=== PATIENT | male | born 1980 ===

== ENCOUNTER 2019-04-22 19:41 | Emergency (ER) | payer BC ==
[2019-04-22 20:10] VITALS: RESP 18
[2019-04-22] MEDS ORDERED: Sodium Chloride 0.9% 1,000 ML IV STA (20:28)
--- NOTE | 2019-04-22 20:53 | ED PDOC ---
HPI: Abdomen Time Seen by Provider: 04/22/19 20:15 Chief Complaint (Nursing): Abdominal Pain Chief Complaint (Provider): Abdominal Pain, Vomiting, Diarrhea History Per: Patient History/Exam Limitations: no limitations Onset/Duration Of Symptoms: Days (x1) Current Symptoms Are (Timing): Still Present Additional Complaint(s): 39 year old male presents to the ED for evaluation of a couple episodes of non- bilious, non-bloody vomiting and several episodes of watery diarrhea beginning yesterday associated with subjective fevers and intermittent episodes of cramping abdominal pain. Patient states he saw his PMD yesterday who did not prescribe him anything, so patient has just been taking Tylenol for pain. Additionally, he is complaining of right sided lower back pain, but believes this is attributed to lifting heavy at his job, and not related to his other symptoms. Otherwise, denies blood in stool, recent travel, and antibiotic use. Past Medical History Reviewed: Historical Data, Nursing Documentation, Vital Signs Vital Signs: Last Vital Signs Temp 99.1 F 04/22/19 20:09 Pulse 105 H 04/22/19 20:09 Resp 18 04/22/19 20:09 BP 124/78 04/22/19 20:09 Pulse Ox 97 04/22/19 20:09 Primary Care Provider: FAMILY PROVIDER,NO - Medical History PMH: No Chronic Diseases - Surgical History Surgical History: No Surg Hx - Family History Family History: States: Unknown Family Hx - Social History Current smoker - smoking cessation education provided: Yes (light) Alcohol: Social Drugs: Denies - Home Medications Home Medications: Ambulatory Orders Medication Instructions Recorded Ciprofloxacin HCl [Cipro] 500 mg PO BID #14 tablet 04/23/19 Metronidazole [Flagyl] 500 mg PO BID #14 tablet 04/23/19 - Allergies Allergies/Adverse Reactions: Allergies Allergy/AdvReac Type Severity Reaction Status Date / Time No Known Allergies Allergy Verified 04/22/19 20:07 Review of Systems ROS Statement: Except As Marked, All Systems Reviewed And Found Negative Constitutional: Positive for: Fever (subjective) Gastrointestinal: Positive for: Nausea, Vomiting (couple episodes non-bloody non-bilious), Abdominal Pain (cramping), Diarrhea (several episodes watery). Negative for: Melena, Hematochezia Musculoskeletal: Positive for: Back Pain (right sided lower back pain) Physical Exam - Reviewed Nursing Documentation Reviewed: Yes Vital Signs Reviewed: Yes - Physical Exam Appears: Positive for: No Acute Distress Head Exam: Positive for: ATRAUMATIC, NORMOCEPHALIC Skin: Positive for: Normal Color, Warm, DRY Eye Exam: Positive for: EOMI, Normal appearance, PERRL ENT: Positive for: Normal ENT Inspection Neck: Positive for: Normal, Painless ROM, Supple Cardiovascular/Chest: Positive for: Regular Rate, Rhythm Respiratory: Positive for: Normal Breath Sounds. Negative for: Respiratory Distress Gastrointestinal/Abdominal: Positive for: Soft, Tenderness (mild epigastric tenderness) Back: Positive for: Normal Inspection Neurological/Psych: Positive for: Awake, Alert, Oriented (x3) - Laboratory Results Result Diagrams: 04/22/19 21:49 04/22/19 21:49 - ECG O2 Sat by Pulse Oximetry: 97 (RA) Pulse Ox Interpretation: Normal - Progress Re-evaluation Time: 02:10 Condition: Re-examined, Improved Medical Decision Making Medical Decision Making: Time: 2023 Initial Impression: abdominal pain, vomiting, diarrhea DDx includes but is not limited to: acute gastroenteritis, diverticulitis, colitis, viral v bacterial infectious diarrhea Initial Plan: --CT abd/pelvis IV contrast only --CMP --Lipase chem --U-dip --CBC with differential --Bentyl 10mg PO --Normal saline IV --Zofran 4mg IV Scribe Attestation: Documented by Paulina Acevedo, acting as a scribe for Jad Lewis MD. Provider Scribe Attestation: All medical record entries made by the Scribe were at my direction and personally dictated by me. I have reviewed the chart and agree that the record accurately reflects my personal performance of the history, physical exam, medical decision making, and the department course for this patient. I have also personally directed, reviewed, and agree with the discharge instructions and disposition. Disposition - Clinical Impression Clinical Impression: Enterocolitis - Patient ED Disposition Is Patient to be Admitted: No Doctor Will See Patient In The: Office Counseled Patient/Family Regarding: Studies Performed, Diagnosis, Need For Followup - Disposition Referrals: [facility] [Outside] Disposition: Routine/Home Disposition Time: 02:11 Condition: GOOD Additional Instructions: LUZ TILLEY, thank you for letting us take care of you today. Your provider was Jad Lewis MD and you were treated for VOMITING, DIARRHEA, FEVER. The emergency medical care you received today was directed at your acute symptoms. If you were prescribed any medication, please fill it and take as directed. It may take several days for your symptoms to resolve. Return to the Emergency Department if your symptoms worsen, do not improve, or if you have any other problems. Please contact your doctor or call one of the physicians/clinics you have been referred to that are listed on the Patient Visit Information form that is included in your discharge packet. Bring any paperwork you were given at d ischarge with you along with any medications you are taking to your follow up visit. Our treatment cannot replace ongoing medical care by a primary care provider outside of the emergency department. Thank you for allowing the [facility] team to be part of your care today. If you had an X-Ray or CT scan: A Radiologist will review the ED reading if any change in treatment is needed we will contact you. If you had a blood, urine, or wound culture: It will take several days for the results, if any change in treatment is needed we will contact you. Prescriptions: Ciprofloxacin HCl [Cipro] 500 mg PO BID #14 tablet Metronidazole [Flagyl] 500 mg PO BID #14 tablet Instructions: Colitis (DC) Forms: [address] ([employer])
[2019-04-22 21:54] LABS: BASO % 0.3 % (0.0-2.0); EOS % 0.3 % (0.0-4.0); HEMOGLOBIN 15.9 g/dL (12.0-18.0); LYMPH # 0.7 K/uL (1.0-4.3); LYMPH % 7.5 % (20.0-40.0); MEAN CELL VOLUME 90.3 fl (80.0-94.0); MEAN CORPUSCULAR HGB CONC 34.4 g/dL (33.0-37.0); MEAN PLATELET VOLUME 9.1 fl (7.2-11.7); MONO # 0.9 K/uL (0.0-0.8); MONO % 9.9 % (0.0-10.0); NEUT # 7.4 K/uL (1.8-7.0); PLATELET COUNT 201 K/uL (130-400); RBC 5.13 Mil/uL (4.40-5.90); RED CELL DISTRIBUTION WIDTH 13.7 % (11.5-14.5); WHITE BLOOD COUNT 9.1 K/uL (4.8-10.8)
[2019-04-22 22:04] LABS: ALB/GLOB RATIO 1.5 (1.0-2.1); ALT/SGPT 57 U/L (21-72); AST/SGOT 43 U/L (17-59); BLOOD UREA NITROGEN 15 mg/dl (9-20); GFR NON-AFRICAN AMERICAN > 60; LIPASE 78 U/L (23-300)
[2019-04-22 22:36] LABS: BANDS 16 % (0-2); LYMPHOCYTE 11 % (20-50); MONOCYTE 7 % (0-10); NEUTROPHIL 66 % (42-75); TOTAL CELLS COUNTED 100
[2019-04-22 22:37] LABS: PLATELET ESTIMATE NORMAL (NORMAL)
[2019-04-22] MEDS ORDERED: Iohexol 300 100 ML IJ ONE (22:56)
[2019-04-22] MEDS ORDERED: Sodium Chloride 0.9% 50 ML IV ONE (22:56)
[2019-04-22 23:57] LABS: VENOUS BLOOD GAS PCO2 37 mmHg (40-60); VENOUS BLOOD GAS PO2 58 mm/Hg (30-55); VENOUS BLOOD PH 7.31 (7.32-7.43)
[2019-04-23] MEDS ORDERED: Ciprofloxacin 400mg/200ml D5W 400 MG/200 ML BAG IVPB STA (00:59)
[2019-04-23] MEDS ORDERED: metroNIDAZOLE 500mg/100ml NS 100 ML IVPB STA (00:59)
[2019-04-23] MEDS ORDERED: metroNIDAZOLE 500mg/100ml NS 100 ML IVPB ONE (01:38)
[2019-04-23] MEDS ORDERED: Ciprofloxacin 400mg/200ml D5W 400 MG/200 ML BAG IVPB ONE (03:05)
[2019-04-23 04:36] VITALS: BP 120/71; PULSE 83; TEMP 98.9; O2SAT 98
--- NOTE | 2019-04-23 11:21 | CT ---
Date of service: 04/22/2019 PROCEDURE: CT abdomen and pelvis HISTORY: Abdominal pain vomiting and diarrhea COMPARISON: No prior study available comparison TECHNIQUE: Contiguous axial images of the abdomen and pelvis performed following intravenous injection of approximately 95 cc Omnipaque 300 contrast material. Additional 2D sagittal and coronal the the the the reformats generated. Radiation dose: Total exam DLP = 753.25 mGy-cm. This CT exam was performed using one or more of the following dose reduction techniques: Automated exposure control, adjustment of the mA and/or kV according to patient size, and/or use of iterative reconstruction technique. FINDINGS: LOWER THORAX: Minor bibasilar atelectasis left greater than right. No effusion or basilar pneumothorax. Heart size within range of normal. No significant pericardial effusion. There is a small hiatal hernia. LIVER: The liver is enlarged measuring over 20 cm in CC dimension. Mild moderate diffuse fatty hepatic infiltration. No obvious hepatic mass collection or calcification. Portal and splenic veins opacified. GALLBLADDER AND BILE DUCTS: Gallbladder appears incompletely distended. No evidence of intraluminal gallbladder calculi. PANCREAS: Unremarkable. No mass, collection, calcification or significant ductal dilatation. SPLEEN: Unremarkable. No splenomegaly. ADRENALS: There are no adrenal lesions seen. KIDNEYS AND URETERS: Kidneys demonstrate symmetric nephrograms. No evidence of nephrolithiasis or hydronephrosis. BLADDER: Urinary bladder is incompletely distended which in part accounts for slight thick-walled appearance. Muscular hypertrophy may contribute. Correlation with urinalysis to exclude cystitis. REPRODUCTIVE: Unremarkable as visualized. APPENDIX: The appendix is not positively identified however no inflammatory changes right lower quadrant of the abdomen to suggest acute appendicitis. BOWEL: Evaluation of the bowel is somewhat limited due to the lack of oral contrast material. Stomach is distended with liquid food debris and air. Visualized loops of small bowel contain fluid and exhibit diffuse wall thickening. Findings consistent with enteritis. Fluid is also present throughout most of the colon consistent with a diarrheal illness. PERITONEUM: Unremarkable. No fluid collection. No free air. Small bilateral fat containing inguinal hernias left slightly larger than right. There is also a tiny fat containing the the umbilical hernia. LYMPH NODES: Tear multiple small mesenteric lymph nodes suggesting underlying mild mesenteric adenitis. VASCULATURE: Unremarkable. No aortic aneurysm. No aortic atherosclerotic calcification or mural plaque present. BONES: Mild multilevel degenerative spondylosis of the lower thoracic and lumbar spine. OTHER FINDINGS: None. IMPRESSION: Findings consistent with enteritis and diarrheal illness as detailed above.. Hepatomegaly with mild moderate fatty hepatic infiltration. Multiple small mesenteric lymph nodes suggesting underlying mild mesenteric adenitis.
== END 2019-04-23 04:36 | disposition home or self-care (01) ==
LOC: H.ER 19:41
DX: K52.9 Noninfective gastroenteritis and colitis, unspecified (principal); F17.200 Nicotine dependence, unspecified, uncomplicated
CPT/HCPCS: 74177; 80053; 82803; 83690; 85025; 87040; 96361; 96365; 96367; 96375; 99284; J0744; J2405; J7030; Q9967